=== PATIENT | female | born 1965 | race Caucasian/White ===

== ENCOUNTER 2017-10-12 10:40 | Day surgery (SDC) | payer OTHER ==
[~2017-10-12] VITALS: Ht 167.6 cm; Wt 120.0 kg
[~2017-10-12 10:40] MED LIST: LISINOPRIL10 MG PO; MELATONIN3 MG PO
[2017-10-12 11:05] VITALS: BP 139/61
[2017-10-12 15:38] VITALS: BP 127/60
== END 2017-10-12 16:21 | disposition home or self-care (01) ==
LOC: SDC 10:40
DX: N84.0 Polyp of corpus uteri (principal); N95.0 Postmenopausal bleeding; I10 Essential (primary) hypertension; K21.9 Gastro-esophageal reflux disease without esophagitis; Z88.5 Allergy status to narcotic agent; Z85.3 Personal history of malignant neoplasm of breast
CPT/HCPCS: 88305; 93005; J0131; J0330; J0690; J1100; J1170; J1200; J1885; J2250; J2405; J3010; Q0175